=== PATIENT | female | born 1955 | race Caucasian/White ===

== ENCOUNTER 2022-12-11 05:50 | Day surgery (SDC) | payer MEDICARE ==
[2022-12-10 08:35] VITALS: BMI 40.2
[2022-12-11] MEDS ORDERED: PROPOFOL 60 ML ONE (07:40)
[2022-12-11] MEDS ORDERED: Midazolam HCl 2 mg/2 ml Vial ONE (07:43)
== END 2022-12-11 08:44 | disposition home or self-care (01) ==
LOC: CSHSDC 05:50
PROVIDERS: ATTEND Internal Medicine Gastroenterology
PROC: 0D753ZZ Dilation of Esophagus, Percutaneous Approach (ICD-10-PCS; principal; 2022-12-11)
PROC: 0DJ08ZZ Inspection of Upper Intestinal Tract, Via Natural or Artificial Opening Endoscopic (ICD-10-PCS; 2022-12-11)
DX: R13.10 Dysphagia, unspecified (principal); K21.9 Gastro-esophageal reflux disease without esophagitis; E66.9 Obesity, unspecified; E11.9 Type 2 diabetes mellitus without complications; I10 Essential (primary) hypertension; E78.5 Hyperlipidemia, unspecified; F41.8 Other specified anxiety disorders; G20 Parkinson's disease; J30.9 Allergic rhinitis, unspecified; Z90.49 Acquired absence of other specified parts of digestive tract; Z98.84 Bariatric surgery status; Z88.0 Allergy status to penicillin; Z88.1 Allergy status to other antibiotic agents; Z79.899 Other long term (current) drug therapy; Z87.891 Personal history of nicotine dependence; Z68.41 Body mass index [BMI] 40.0-44.9, adult
CPT/HCPCS: 36416; J2250; J2704